=== PATIENT | female | born 1955 | race Caucasian/White ===

== ENCOUNTER → 2016-03-18 | Day surgery (SDC) ==
--- NOTE | 2016-03-18 08:14 | OPERATIVE NOTE ---
PROCEDURE DATE: 03/18/2016 PREOPERATIVE DIAGNOSIS: Abnormal mammogram and ultrasound of right breast with lesion noted in the right upper outer breast. POSTOPERATIVE DIAGNOSIS: Abnormal mammogram and ultrasound of right breast with lesion noted in the right upper outer breast. PROCEDURES: Ultrasound-guided breast biopsy, right upper outer lesion. SURGEON: Igor Rhodes MD. MAJOR SALES ASSOCIATE: None. ANESTHESIA: Local administered by the surgeon. INTRAOPERATIVE FINDINGS: A 0.5-0.6 cm lesion noted at the 11 o'clock position in the right upper outer breast. BRIEF HISTORY: The patient is a 51-year-old, female initially seen for an abnormal mammogram. It was felt that the patient would benefit from a biopsy. The risks, benefits, and alternatives were discussed. She voiced understanding and wished to proceed with the procedure. DESCRIPTION OF PROCEDURE: After informed consent was obtained, the patient was brought to the mammogram suite and placed on the mammogram table. Ultrasound was used to identify the lesion in the right upper outer breast. It was felt that the patient benefit from a biopsy after the risks benefits, and alternatives. We identified the lesion on ultrasound. We prepped and draped the right breast in the standard fashion. Did a formal time-out, confirming patient, date, procedure. All were in agreement. At that time, used local anesthetic to anesthetize the skin. I made a small stab incision through which we inserted the biopsy machine. Took multiple biopsies and essentially obliterated the lesion. We placed a clip. The patient tolerated the procedure well and remained in the mammogram suite. Postoperatively, we will follow up with the pathology.
== END | disposition home or self-care (01) ==
LOC: MAMMO 06:57 → EDSTATUS 07:30
PROVIDERS: ATTEND Surgery
DX: N60.11 Diffuse cystic mastopathy of right breast (principal); N60.81 Other benign mammary dysplasias of right breast; R92.2 Inconclusive mammogram
CPT/HCPCS: 19083; 88305; 88313; A4648